=== PATIENT | female | born 1960 | race Caucasian/White ===

== ENCOUNTER 2021-09-03 13:04 | Emergency (ER) | payer OTHER ==
[2021-09-03 14:14] LABS: HEMOGLOBIN 14.5 gm/dl (12.3-15.3); RED BLOOD COUNT 4.6 M/UL (4.00-5.10); WHITE BLOOD COUNT 7.2 K/UL (4.5-11.0)
[2021-09-03 14:36] LABS: BUN/CREATININE RATIO 15 (0-10)
== END 2021-09-03 18:25 | disposition home or self-care (01) ==
LOC: ER1 13:04
PROVIDERS: Nurse Practitioner
DX: R06.00 Dyspnea, unspecified (principal); F17.210 Nicotine dependence, cigarettes, uncomplicated; Z20.822 Contact with and (suspected) exposure to COVID-19
CPT/HCPCS: 0240U; 71045; 80053; 81001; 82550; 82553; 83880; 84484; 85025; 93005; 99285